=== PATIENT | female | born 1990 | race Caucasian/White ===

== ENCOUNTER 2020-05-26 16:14 | Outpatient (CLI) | payer OTHER, SELFPAY ==
--- NOTE | ~2020-05-26 | XR_ITS ---
EXAMINATION: XR lumbar spine 6V w bending DATE: 05/26/2020 16:51 INDICATION: Low back pain with bending TECHNIQUE: 7 views of the lumbar spine including anteroposterior, lateral in neutral, flexion and ext ension, left and right oblique and cone-down lateral lumbosacral views of the lumbar spine were obtai ej. COMPARISON: None. FINDINGS: 11 degree levoscoliosis measured between T12 and L3. Sagittal alignment is normal with normal motion on flexion and extension. Vertebral body heights are normal. Mild right-sided disc height loss at L1- L2. And mild left-sided disc height loss at L3-L4. No pars interarticularis defects. Multilevel mild bilateral lumbar facet osteoarthritis. 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 Sacrum and bilateral sacral iliac joints are normal. IUD in expected position in the cent ral pelvis. Visualized posterior lung bases are clear. IMPRESSION: 1. Mild upper lumbar levoscoliosis with mild spondylosis. Line 2. IUD in expected position. Reviewed, dictated and finalized at location A. LEM MANAGER
== END 2020-05-26 16:15 | disposition home or self-care (01) ==
PROVIDERS: PCP Internal Medicine; Visit Provider Physician Assistant
DX: M47.896 Other spondylosis, lumbar region (principal); Z97.5 Presence of (intrauterine) contraceptive device
CPT/HCPCS: 72114

== ENCOUNTER 2021-11-11 20:43 | Emergency (ER) | payer OTHER, SELFPAY ==
[2021-11-11 21:12] VITALS: BP 110/83; PULSE 94; RESP 20; TEMP 36.6; O2SAT 100
[2021-11-11] MEDS: ONDANSETRON INJ 4 MG/2 ML VIAL IV PUSH (22:34)
[2021-11-11] MEDS: FAMOTIDINE 20 MG/2 ML VIAL IV PUSH (22:34)
--- NOTE | 2021-11-11 22:48 | ED.NAVMDI ---
HPI - Nausea/Vomiting/Diarrhea General Chief complaint: Nausea/Vomiting/Diarrhea Stated complaint: N/V/D, ABD pain Time Seen by Provider: 11/11/21 22:19 History of Present Illness HPI Narrative: 31-year-old female states that since noon she has been having nausea and diarrhea, she took some Zofran at home thinking it would help but still feeling quite nauseous. No fevers or chills, she does work as a scribe in an optometry office, endorsing some cramping in the lower abdomen. Worried that she may be dehydrated. Related Data Home Medications Medication Instructions Recorded Confirmed cholecalciferol (vitamin D3) 10 10 mcg PO DAILY 07/26/19 10/29/20 mcg (400 unit) capsule cranberry extract 200 mg capsule 200 mg PO DAILY 07/26/19 10/29/20 folic acid 400 mcg tablet 0.4 mg PO DAILY 07/26/19 10/29/20 levonorgestrel 20.1 mcg/24 hrs (6 1 device intrauterine ONCE 07/26/19 10/29/20 yrs) 52 mg intrauterine device (Liletta) omega-3 fatty acids 1,000 mg 1,000 mg PO DAILY 10/26/20 10/29/20 capsule Allergies Allergy/AdvReac Type Severity Reaction Status Date / Time Sulfa (Sulfonamide Allergy Mild Unknown Verified 11/11/21 21:19 Antibiotics) Review of Systems Review of Systems: CONST: No fever. HEENT: No sore throat C/V: No chest pain RESP: No cough GI: Reports abdominal pain, nausea, diarrhea : No dysuria. M/S: No joint pain. SKIN: No rash. NEURO: No headache or focal numbness or weakness PSYCH: No depression PMFSH Family History Family History Father Hypertension Family history of gastrointestinal disorder Family history of elevated blood lipids Family history of chronic obstructive pulmonary disease Mother Family history of gastrointestinal disorder Family history of elevated blood lipids Sibling Family history of attention deficit hyperactivity disorder (ADHD) Diabetes mellitus Social History Social History Smoking status: Never smoker Second hand tobacco smoke exposure: Yes Alcohol intake: current Drinks per week: 2 Substance use: never Exam Narrative: EXAMINATION OF ORGAN SYSTEMS/BODY AREAS: Constitutional: Vital signs per nursing GENERAL: Appears tired and uncomfortable HEAD: Normal with no signs of head trauma. EYES: EOMI, conjunctiva normal ENT: Hearing grossly intact LUNGS: Nonlabored breathing. HEART: [Regular rate and rhythm] ABD: [Soft], [nontender to palpation] EXT: Normal range of motion SKIN: [No rashes or lesions.] NEURO: [Alert and oriented x 3. No gross focal sensory or strength deficits.] PSYCH: Normal affect Course Vital Signs Vital signs: Vital Signs Temperature 97.9 F 11/11/21 21:12 Pulse Rate 94 11/11/21 21:12 Respiratory Rate 20 11/11/21 21:12 Blood Pressure 110/83 11/11/21 21:12 Pulse Oximetry 100 11/11/21 21:12 Oxygen Delivery Room Air 11/11/21 21:12 Temperature 97.9 F 11/11/21 21:12 Pulse Rate 108 H 11/12/21 00:11 Respiratory Rate 18 11/12/21 00:11 Blood Pressure 141/95 H 11/12/21 00:11 Pulse Oximetry 99 11/12/21 00:11 Oxygen Delivery Room Air 11/11/21 21:12 MDM - Nausea/Vomiting/Diarrhea MDM Narrative Medical decision making narrative: 31-year-old female with 1 day of symptoms most suggestive of viral syndrome with nausea and diarrhea. Vital signs stable, on exam abdomen is soft and nontender. Doubt biliary disease or appendicitis without tenderness; doubt UTI without dysuria. Patient is treated symptomatically with [IV fluids,] ondansetron, famotidine. Labs obtained and no signs of leukocytosis or elevated LFTs or lipase. On reevaluation, patient still quite nauseous and threw up the Maalox; she is then given a dose of Reglan. On re-evaluation, she is feeling much better, abdominal pain improved, on repeat evaluation still no tenderness, she is less nauseous, patient is comfortable joey
[2021-11-11 22:51] LABS: Basophils Percent Auto 0.2 % (0.2-1.2); Eosinophils Absolute Auto 0.1 K/mm3 (0-0.3); Eosinophils Percent Auto 1.3 % (0-4.4); Hematocrit 45.8 % (37.0-47.0); Hemoglobin 14.9 g/dL (12.0-15.0); Immature Granulocyte Absolute 0.01 K/mm3 (0.00-0.031); Immature Granulocyte Percent A 0.2 % (0-0.5); Immature Platelet Fraction Pct 3.6 % (0.9-11.2); Lymphocytes Absolute Auto 0.58 K/mm3 (0.9-3.2); Lymphocytes Percent Auto 12.9 % (18.3-44.2); Mean Corpuscular HGB Conc 32.5 g/dl (32-36); Mean Corpuscular Hemoglobin 31.4 pg (26-34); Mean Corpuscular Volume 96.4 fl (80-100); Mean Platelet Volume 10.3 fl (7.4-10.4); Monocytes Absolute Auto 0.2 K/mm3 (0.1-0.6); Monocytes Percent Auto 5.3 % (2.6-8.5); Neutrophils Absolute Auto 3.6 K/mm3 (1.3-6.7); Neutrophils Percent Auto 80.1 % (45.5-73.1); Platelet Count Result 118 k/mm3 (150-375); Red Blood Count 4.75 M/mm3 (4.2-5.4); Red Cell Distribution Width 11.6 % (11.5-14.5); White Blood Count 4.5 K/mm3 (4.5-10.0)
[2021-11-11 22:53] LABS: Appearance Urine Clear (Clear); Bilirubin Urine Negative (Negative); Blood Urine Negative (Negative); Color Urine Yellow (Yellow); Glucose Urine UA Negative (Negative); Ketones Urine Negative (Negative); Leukocyte Esterase Ur Negative LEU/UL (Negative); Nitrate Urine Negative (Negative); Protein Urine Negative (Negative); Specific Grav Ur 1.015 (1.001-1.035); Urobilinogen Urine 0.2 mg/dL (<2.0)
[2021-11-11] MEDS: LACTATED RINGERS 1,000 ML 999 ML IV CONT (22:55)
[2021-11-11 23:26] LABS: SARS-CoV-2 RNA PCR Negative
[2021-11-11 23:47] LABS: Alanine Aminotransferase 19 U/L (6-35); Albumin Level 3.5 g/dL (3.5-5.1); Alkaline Phosphatase 36 U/L (38-126); Anion Gap 8 mmol/L (8-16); Aspartate Amino Transferase 24 U/L (14-36); Bilirubin,Total 0.5 mg/dL (0.2-1.3); Blood Urea Nitrogen 11 mg/dL (7-17); Calcium 7.7 mg/dL (8.4-10.2); Carbon Dioxide 26 mmol/L (22-30); Chloride 101 mmol/L (98-107); Estimated CRCL calculation 74 ml/min; Estimated Glomerular Filt Rate > 60; Glucose 99 mg/dL (65-110); Lipase 76 U/L (23-300); Potassium 3.9 mmol/L (3.4-5.0); Sodium 135 mmol/L (137-145)
[2021-11-11 23:54] LABS: Add Urine Microscopic? NO
[2021-11-12] MEDS: MAG HYDROX/AL HYDROX/SIMETH 30 ML UDC PO (00:03)
[2021-11-12] MEDS: METOCLOPRAMIDE HCL INJ 10 MG/2 ML VIAL IV PUSH (00:08)
[2021-11-12 00:11] VITALS: BP 141/95; PULSE 108; RESP 18; O2SAT 99
== END 2021-11-12 01:17 | disposition home or self-care (01) ==
PROVIDERS: Emergency Provider Emergency Medicine; PCP Internal Medicine
DX: R19.7 Diarrhea, unspecified (principal); R11.2 Nausea with vomiting, unspecified; Z20.822 Contact with and (suspected) exposure to COVID-19
CPT/HCPCS: 36415; 80053; 81003; 81025; 83690; 85025; 85055; 96361; 96374; 96375; 99284; A9270; C9803; J2405; J2765; J7120; U0003; U0005

== ENCOUNTER 2022-08-19 10:13 | Outpatient (CLI) | payer OTHER, SELFPAY | END 2022-08-19 10:14 | disposition home or self-care (01) | PROVIDERS: PCP Internal Medicine; Visit Provider Physician Assistant | DX: M25.571 Pain in right ankle and joints of right foot (principal) | CPT/HCPCS: 73610 ==

== ENCOUNTER 2024-06-02 21:39 | Emergency (ER) | payer OTHER, SELFPAY ==
[2024-06-02 21:41] VITALS: BP 145/95; PULSE 69; RESP 20; TEMP 36.3; O2SAT 100
--- OUTSIDE RECORDS SUMMARY | 2024-06-02 21:41 | XMS_ITS | Clinical Summary ---
Author Organization [facility] [email or web address] Address [address] [place] [address] Care Team Providers Care Brand Mgr Name Role Phone Unavailable Primary Care Provider Unavailabl e Source Comments [facility] [email or web address],non-owned Affiliates and Associated Physician Practices is amultiple site organization consisting of ambulatory clinics and hospital sitesin [place], [place], [place] and [place]. This disclosure is being madepursuant to the Care Everywhere program and may not contain all information available regarding this patient. Last updated 18.[facility] [email or web address] Allergies Active Allergy Reactions Criticality Noted Date Comments Sulfa Drugs 05/15/2017 Medications * Be aware that medications may not be up to date on this document. Alwaysverify current medications with the patient. Medication Sig Dispensed Refills Start Date End Date Status IUD'S IU Active phenazopyridine (PYRIDIUM) 200 MG tablet Take 1 tablet by mouth 3 times daily as needed 12 tablet 05/15/2017 Active Active Problems Problem Noted Date Diagnosed Date Scoliosis Raynaud's disease Immunizations Name Administration Dates Next Due TDAP (7yrs+) 07/20/2019 Family History Medical History Relation Name Comments Hypertension Maternal Grandmother CAD (Coronary Artery Disease) Paternal Grandmother Relation Name Status Comments Maternal Grandmother Paternal Grandmother Social History Tobacco Use Types Packs/Day Years Used Date Smoking Tobacco: Never Smokeless Tobacco: Never Sex and Gender Information Value Date Recorded Sex Assigned at Not on file Gender Identity Not on file Sexual Orientation Not on file Last Filed Vital Signs Vital Sign Reading Time Taken Comments Blood Pressure 126/82 05/15/2017 4:55 PM SHEET ROLLER OPERATOR Pulse 85 05/15/2017 4:55 PM SHEET ROLLER OPERATOR Temperature 36.7 C (98 F) 05/15/2017 4:55 PM SHEET ROLLER OPERATOR Respiratory Rate 16 05/15/2017 4:55 PM SHEET ROLLER OPERATOR Oxygen Saturation 98% 05/15/2017 4:55 PM SHEET ROLLER OPERATOR Inhaled Oxygen Concentration - - Weight 52.2 kg (115 lb) 05/15/2017 4:55 PM SHEET ROLLER OPERATOR Height 165.1 cm (5' 5 ) 05/15/2017 4:55 PM SHEET ROLLER OPERATOR Body Mass Index 19.14 05/15/2017 4:55 PM SHEET ROLLER OPERATOR Plan of Treatment Health Maintenance Due Date Last Done Comments PAP SMEAR 1991 HIV SCREENING 09/02/2006 HEPATITIS C SCREENING 08/29/2009 HEPATITIS B VACCINE (1 of 3 - 19+ 3-dose series) 09/02/2010 COVID-19 VACCINE (2023-2 5 season) 2023 INFLUENZA VACCINE (#1) 2023 DEPRESSION SCREENING 04/17/2024 DTAP/TDAP/TD VACCINES (2 - T d or Tdap) 07/19/2029 07/20/2019 ZOSTER VACCINE (1 of 2) 09/02/2041 HIB VACCINE Aged Out No longer eligi ble based on patient's age to complete this topic HPV VACCINE Aged Out No longer eligi ble based on patient's age to complete this topic MENINGOCOCCAL (Group B) VACCINE Aged Out No longer eligible based on patient's age to complete this topic MENINGOCOCCAL VACCINE Aged Out No vanesa maira eligible based on patient's age to complete this topic PNEUMOCOCCAL VACCINE Aged Out No long er eligible based on patient's age to complete this topic
--- OUTSIDE RECORDS SUMMARY | 2024-06-02 21:41 | XMS_ITS | Patient Health Summary ---
Author Organization [facility] [employer] Address [address] [place] [address] Care Team Providers Care Behavioral Sciences Department Chair Name Role Phone Unavailable Primary Care Provider Unavailabl e Note from [facility],non-owned Affiliates and Associated Physician Practices is amultiple site organization consisting of ambulatory clinics and hospital sitesin [place], [place], [place] and [place]. This disclosure is being madepursuant to the Care Everywhere program and may not contain all information available regarding this patient. Last updated 18.[facility] [employer] Allergies * Sulfa Drugs Medications * Be aware that medications may not be up to date on this document. Alwaysverify current medications with the patient. * IUD'S IU * phenazopyridine (PYRIDIUM) 200 MG tablet(Started 05/15/2017) Take 1 tablet by mouth 3 times daily as needed Active Problems Problem Noted Date Diagnosed Date Scoliosis Raynaud's disease Immunizations * TDAP (7yrs+)(Given 07/20/2019) Social History Tobacco Use Types Packs/Day Years Used Date Smoking Tobacco: Never Smokeless Tobacco: Never Sex and Gender Information Value Date Recorded Sex Assigned at Not on file Gender Identity Not on file Sexual Orientation Not on file Last Filed Vital Signs Vital Sign Reading Time Taken Comments Blood Pressure 126/82 05/15/2017 4:55 PM SPANNER OPERATOR Pulse 85 05/15/2017 4:55 PM SPANNER OPERATOR Temperature 36.7 C (98 F) 05/15/2017 4:55 PM SPANNER OPERATOR Respiratory Rate 16 05/15/2017 4:55 PM SPANNER OPERATOR Oxygen Saturation 98% 05/15/2017 4:55 PM SPANNER OPERATOR Inhaled Oxygen Concentration - - Weight 52.2 kg (115 lb) 05/15/2017 4:55 PM SPANNER OPERATOR Height 165.1 cm (5' 5 ) 05/15/2017 4:55 PM SPANNER OPERATOR Body Mass Index 19.14 05/15/2017 4:55 PM SPANNER OPERATOR Procedures * URINALYSIS AUTO - POINT OF CARE (AMB) STL(Performed 05/15/2017) Performed for Acute cystitis with hematuria Results * URINALYSIS AUTO - POINT OF CARE (AMB) STL (05/15/2017) Clarity UA POCT Cloudy Color UA POCT Dark Yellow Leukocyte UA 1+ Negative Nitrite UA POCT Negative Negative Urobilinogen UA 0.2 0.1 - 1.0 Protein UA POCT 1+ Negative pH UA 5.0 5.0 - 8.0 pH units Blood UA 2+ Negative Specific [place] UA POCT 1.030 1.002 - 1.030 Ketone UA 1+ Negative Bilirubin UA POCT Negative Negative Glucose UA Negative Negative Expiration Date [id number] Lot # 11/26/18 QC Verified Yes Yes Urine URINE / Unknown 05/15/2017 Harleen Collins EPIDEMIOLOGY INTERN-SMALL ARMS REPAIRER LAB - POINT OF CARE ORDERABLES
--- OUTSIDE RECORDS SUMMARY | 2024-06-02 21:41 | XMS_ITS | Referral Summary ---
Author Organization [facility] [employer] Address [address] [place] [address] Care Team Providers Care Interior Design Director Name Role Phone Unavailable Primary Care Provider Unavailabl e Source Comments [facility] [employer],non-owned Affiliates and Associated Physician Practices is amultiple site organization consisting of ambulatory clinics and hospital sitesin [place], [place], [place] and [place]. This disclosure is being madepursuant to the Care Everywhere program and may not contain all information available regarding this patient. Last updated 18.[facility] [employer] Allergies Active Allergy Reactions Criticality Noted Date [...] Administration Dates Next Due TDAP (7yrs+) 07/20/2019 Social History Tobacco Use Types Packs/Day Years Used Date Smoking Tobacco: Never Smokeless Tobacco: Never Sex and Gender Information Value Date Recorded Sex Assigned at Not on file Gender Identity Not on file Sexual Orientation Not on file Last Filed Vital Signs Vital Sign Reading Time Taken Comments Blood Pressure 126/82 05/15/2017 4:55 PM SENSOR OPERATOR Pulse 85 05/15/2017 4:55 PM SENSOR OPERATOR Temperature 36.7 C (98 F) 05/15/2017 4:55 PM SENSOR OPERATOR Respiratory Rate 16 05/15/2017 4:55 PM SENSOR OPERATOR Oxygen Saturation 98% 05/15/2017 4:55 PM SENSOR OPERATOR Inhaled Oxygen Concentration - - Weight 52.2 kg (115 lb) 05/15/2017 4:55 PM SENSOR OPERATOR Height 165.1 cm (5' 5 ) 05/15/2017 4:55 PM SENSOR OPERATOR Body Mass Index 19.14 05/15/2017 4:55 PM SENSOR OPERATOR Plan of Treatment Not on file
--- OUTSIDE RECORDS SUMMARY | 2024-06-03 01:39 | XMS_ITS | Clinical Summary ---
Author Organization [facility] [employer] Address [address] [place] [address] Care Team Providers Care Cabinetmaker Supervisor Name Role Phone Unavailable Primary Care Provider Unavailabl e Source Comments [facility] [employer],non-owned Affiliates and Associated Physician Practices is amultiple site organization consisting of ambulatory clinics and hospital sitesin [place], [place], [place] and [place]. This disclosure is being madepursuant to the Care Everywhere program and may not contain all information available regarding this patient. Last updated 18.[facility] [employer] Allergies Active Allergy Reactions Criticality Noted Date [...] Comments Blood Pressure 126/82 05/15/2017 4:55 PM BRAND ENGINEER Pulse 85 05/15/2017 4:55 PM BRAND ENGINEER Temperature 36.7 C (98 F) 05/15/2017 4:55 PM BRAND ENGINEER Respiratory Rate 16 05/15/2017 4:55 PM BRAND ENGINEER Oxygen Saturation 98% 05/15/2017 4:55 PM BRAND ENGINEER Inhaled Oxygen Concentration - - Weight 52.2 kg (115 lb) 05/15/2017 4:55 PM BRAND ENGINEER Height 165.1 cm (5' 5 ) 05/15/2017 4:55 PM BRAND ENGINEER Body Mass Index 19.14 05/15/2017 4:55 PM BRAND ENGINEER Plan of Treatment Health Maintenance Due Date [...]
--- OUTSIDE RECORDS SUMMARY | 2024-06-03 01:39 | XMS_ITS | Patient Health Summary ---
Author Organization [facility] Address [address] [place] [address] Care Team Providers Care Gas Load Dispatcher Name Role Phone Unavailable Primary Care Provider Unavailabl e Note from [facility],non-owned Affiliates and Associated Physician Practices is amultiple site organization consisting of ambulatory clinics and hospital sitesin [place], [place], [place] and [place]. This disclosure is being madepursuant to the Care Everywhere program and may not contain all information available regarding this patient. Last updated 18.[facility] Allergies * Sulfa Drugs Medications * Be [...] Comments Blood Pressure 126/82 05/15/2017 4:55 PM HEEL NAILING MACHINE OPERATOR Pulse 85 05/15/2017 4:55 PM HEEL NAILING MACHINE OPERATOR Temperature 36.7 C (98 F) 05/15/2017 4:55 PM HEEL NAILING MACHINE OPERATOR Respiratory Rate 16 05/15/2017 4:55 PM HEEL NAILING MACHINE OPERATOR Oxygen Saturation 98% 05/15/2017 4:55 PM HEEL NAILING MACHINE OPERATOR Inhaled Oxygen Concentration - - Weight 52.2 kg (115 lb) 05/15/2017 4:55 PM HEEL NAILING MACHINE OPERATOR Height 165.1 cm (5' 5 ) 05/15/2017 4:55 PM HEEL NAILING MACHINE OPERATOR Body Mass Index 19.14 05/15/2017 4:55 PM HEEL NAILING MACHINE OPERATOR Procedures * URINALYSIS AUTO - POINT [...] pH units Blood UA 2+ Negative Specific [place] UA POCT 1.030 1.002 - 1.030 Ketone UA 1+ Negative Bilirubin UA POCT Negative Negative Glucose UA Negative Negative Expiration Date [id number] Lot # 11/26/18 QC Verified Yes Yes Urine URINE / Unknown 05/15/2017 Harleen Collins STERILE TECH-ELECTROPLATER APPRENTICE LAB - POINT OF CARE ORDERABLES
--- OUTSIDE RECORDS SUMMARY | 2024-06-03 01:39 | XMS_ITS | Referral Summary ---
Author Organization [facility] [employer] Address [address] [place] [address] Care Team Providers Care Log Stacker Operator Name Role Phone Unavailable Primary Care Provider Unavailabl e Source Comments [facility] [employer],non-owned Affiliates and Associated Physician Practices is amultiple site organization consisting of ambulatory clinics and hospital sitesin [place], [place], [place] and [place]. This disclosure is being madepursuant to the Care Everywhere program and may not contain all information available regarding this patient. Last updated 18.[facility] [employer] Allergies Active Allergy Reactions Criticality Noted Date [...] Comments Blood Pressure 126/82 05/15/2017 4:55 PM COMPUTER DISCOVERY TEACHER Pulse 85 05/15/2017 4:55 PM COMPUTER DISCOVERY TEACHER Temperature 36.7 C (98 F) 05/15/2017 4:55 PM COMPUTER DISCOVERY TEACHER Respiratory Rate 16 05/15/2017 4:55 PM COMPUTER DISCOVERY TEACHER Oxygen Saturation 98% 05/15/2017 4:55 PM COMPUTER DISCOVERY TEACHER Inhaled Oxygen Concentration - - Weight 52.2 kg (115 lb) 05/15/2017 4:55 PM COMPUTER DISCOVERY TEACHER Height 165.1 cm (5' 5 ) 05/15/2017 4:55 PM COMPUTER DISCOVERY TEACHER Body Mass Index 19.14 05/15/2017 4:55 PM COMPUTER DISCOVERY TEACHER Plan of Treatment Not on file
--- NOTE | 2024-06-03 01:51 | ED.GENADULT ---
HPI - General Adult General Chief complaint: Wound/Laceration Stated complaint: cut right pointer finger on kitchen knife Time Seen by Provider: 06/03/24 01:17 History of Present Illness HPI narrative: 33-year-old female presenting with laceration to the posterior knuckle right 2nd digit. This occurred while she was washing dishes and she slipped and cut herself with a knife. Related Data Home Medications ?Medication ?Instructions ?Recorded ?Confirmed ?Last Taken ?Type cholecalciferol (vitamin D3) 10 10 mcg PO DAILY 07/26/19 01/25/24 Unknown History mcg (400 unit) capsule folic acid 400 mcg tablet 0.4 mg PO DAILY 07/26/19 01/25/24 Unknown History levonorgestrel 20.4 mcg/24 hr (up 1 device intrauterine ONCE 07/26/19 01/25/24 Unknown History to 8 yrs) 52 mg intrauterine device (Liletta) omega-3 fatty acids 1,000 mg 1,000 mg PO DAILY 10/26/20 01/25/24 Unknown History capsule cetirizine 10 mg tablet (Zyrtec) 10 mg PO DAILY PRN 02/08/22 01/25/24 Unknown History Allergies Allergy/AdvReac Type Severity Reaction Status Date / Time Sulfa (Sulfonamide Allergy Mild Unknown Verified 06/02/24 21:43 Antibiotics) [facility] Family History Family History Father Hypertension Family history of gastrointestinal disorder Family history of elevated blood lipids Family history of chronic obstructive pulmonary disease Mother Family history of gastrointestinal disorder Family history of elevated blood lipids Sibling Family history of attention deficit hyperactivity disorder (ADHD) Diabetes mellitus Social History Social History Smoking status: Never smoker Second hand tobacco smoke exposure: Yes Alcohol intake: current Drinks per week: 2 Substance use: never Lack of Transportation: No Lack of Food: Never True Current Housing: I Have Housing Concerned About Future Housing: No Difficulty Paying Gas/Electric Bills: No Difficulty Paying for Meds: No Currently Unemployed: No Education: Master's Degree or Higher Difficulty w/ Childcare or Family Care: No Exam Narrative: APPEARANCE: No apparent distress. Head: atraumatic. EYES: EOMI, NOSE: Atraumatic NECK: Trachea midline RESPIRATORY: No increased rate of breathing CARDIOVASCULAR: RRR, ABDOMINAL: Non-distended MUSCULOSKELETAl: No obvious deformities NEURO: Alert. Moving 4/4 extremities SKIN:: 1 cm laceration to the posterior MCP of the 2nd digit of the right hand. No involvement of deeper structures. No functional deficits the finger. PSYCHIATRIC: Normal affect Course Vital Signs Vital signs: Vital Signs Temperature 97.3 F L 06/02/24 21:41 Pulse Rate 69 06/02/24 21:41 Respiratory Rate 20 06/02/24 21:41 Blood Pressure 145/95 H 06/02/24 21:41 Pulse Oximetry 100 06/02/24 21:41 Oxygen Delivery Room Air 06/02/24 21:41 Temperature 97.3 F L 06/02/24 21:41 Pulse Rate 69 06/02/24 21:41 Respiratory Rate 20 06/02/24 21:41 Blood Pressure 145/95 H 06/02/24 21:41 Pulse Oximetry 100 06/02/24 21:41 Oxygen Delivery Room Air 06/02/24 21:41 Procedures Laceration Laceration 1: Date: 06/03/24 Site: hand Side (If applicable): right Size (cm): 1 Description: linear Depth: simple, single layer Local Anesthetic: lidocaine 1% Amount of anesthesia used (mL): 3 Pre-repair: wound explored, irrigated and irrigated extensively ====== Skin Level ====== Skin layer closed with: prolene Size (cm): 4-0 Number of sutures: 2 ====== Subcutaneous Layer ====== ====== Muscle Layer ====== ====== Tendon Layer ====== Medical Decision Making MDM Narrative Medical decision making narrative: -Course: 33-year-old female presenting with a laceration to the 2nd digit. No involvement of deeper structures. No functional deficits. Fingers neurovascularly intact. A suture was repaired. Sutures need to be removed in 10-14 days. Patient discharged with return precautions. Vital Signs Vital Signs: Vital Signs Temperature 97.3 F L 06/02/24 21:41 Pulse Rate 69 06/02/24 21:41 Respiratory Rate 20 06/02/24 21:41 Blood Pressure 145/95 H 06/02/24 21:41 Pulse Oximetry 100 06/02/24 21:41 Oxygen Delivery Room Air 06/02/24 21:41 Temperature 97.3 F L 06/02/24 21:41 Pulse Rate 69 06/02/24 21:41 Respiratory Rate 20 06/02/24 21:41 Blood Pressure 145/95 H 06/02/24 21:41 Pulse Oximetry 100 06/02/24 21:41 Oxygen Delivery Room Air 06/02/24 21:41 Discharge Plan Discharge Clinical Impression: Laceration Patient Disposition: Home, Self-Care Condition: Stable Instructions: Antibiotic Form, Care For Your Stitches (ED) Additional Instructions: Sutures should be removed in 10-14 days. Return for develops signs of infection. Patient Language: Khmer Prescriptions: No Action omega-3 fatty acids 1,000 mg capsule 1,000 mg PO DAILY cetirizine [Zyrtec] 10 mg tablet 10 mg PO DAILY PRN sertraline 25 mg tablet 25 mg PO DAILY Qty: 90 3RF Rx Instructions: with food Liletta 20.1 mcg/24 hrs (6 yrs) 52 mg intrauterine device 1 device I-UTERINE ONCE Rx Instructions: as a single dose folic acid 400 mcg tablet 0.4 mg PO DAILY cholecalciferol (vitamin D3) 10 mcg (400 unit) capsule 10 mcg PO DAILY amlodipine 2.5 mg tablet 2.5 mg PO DAILY Qty: 90 1RF Follow-up/Referrals: Horacio Mcdaniel APRN [Primary Care Provider] -
[2024-06-03] MEDS: TETANUS,DIPHTHERIA,AC PERTUSSIS ADULT (0.5 ML) BOOSTRIX IM (02:08)
[2024-06-03 02:21] VITALS: BP 151/87; PULSE 74; RESP 17; O2SAT 99
[2024-06-03 02:22] VITALS: BP 151/87; PULSE 74; RESP 17; O2SAT 99
== END 2024-06-03 02:23 | disposition home or self-care (01) ==
PROVIDERS: Emergency Provider Emergency Medicine; PCP Nurse Practitioner
DX: S61.411A Laceration without foreign body of right hand, initial encounter (principal); Z23 Encounter for immunization; Z97.5 Presence of (intrauterine) contraceptive device; Z79.899 Other long term (current) drug therapy; Y93.G1 Activity, food preparation and clean up; W26.0XXA Contact with knife, initial encounter; Z77.22 Contact with and (suspected) exposure to environmental tobacco smoke (acute) (chronic)
CPT/HCPCS: 12001; 90471; 90715; 99282; J2003